=== PATIENT | male | born 1940 | race Caucasian/White ===

== ENCOUNTER 2016-05-05 16:15 | Emergency (ER) | payer MEDICARE ==
[~2016-05-05] VITALS: Ht 182.9 cm; Wt 119.1 kg
[~2016-05-05 16:15] MED LIST: ASPI81 PO; ATOR20TA42 PO; DOXA1 PO; FURO1TAB93 PO; GLIP5 PO; GLUCTAB PO; LISI-360 PO
[2016-05-05 16:18] VITALS: BP 128/81; PULSE 75; RESP 12; TEMP 98.1; O2SAT 98
[2016-05-05] MEDS ORDERED: WALKER/ADULT/FO1 MIS (17:10)
[2016-05-05] MEDS ORDERED: BACL10TA PO (17:10)
[2016-05-05] MEDS ORDERED: LIDO5DIS35 TOPICAL (17:10)
--- NOTE | 2016-05-05 17:12 | PD ---
HPI Chief Complaint: Back/ Neck Pain or Injury Time Seen by Provider: 16:58 Travel History International Travel<30 days: No Contact w/Intl Traveler<30days: No Traveled to known affect area: No History of Present Illness HPI 75 year old male here with lower back pain. He reports over the past year he has suffered from pain in the left and right lower back and he was told that he has sciatica. Sometimes the pain shoots down the right leg. He reports that today he was undergoing a medical procedure in which she had wine a hard bed for 20 minutes. Afterwards he had worse pain in his lower back from lying on the bed. He describes it as a sharp pain in the left and right sacroiliac regions of his back that is worse with movement. He has been using a family member's walker to get around today. He reports that he is prescribed tramadol and Vicodin for pain and he only uses it as needed. Today he needed to use some Vicodin and tramadol. Denies bowel or bladder incontinence, saddle anesthesia, abdominal pain, lower extremity weakness or radicular symptoms at this time. He has no other complaints. [facility] Past Medical History Narrative Medical Diabetes, hypertension, CHF Social History Alcohol Use: No Tobacco Use: No Allergies-Medications (Allergen,Severity, Reaction): Coded Allergies: No Known Allergies (Verified , 05/05/16) Reported Meds & Prescriptions Reported Meds & Active Scripts Active Walker/Adult/Folding (Device) 1 Mis Mis 1 Ea .ROUTE DIRECTED Baclofen 10 Mg Tab 10 Mg PO TID 7 Days Lidoderm Patch 12 HR (Lidocaine) 5% Patch 1 Patch TOPICAL DAILY PRN Remove patch after 12 hours Reported Glipizide 5 Mg Tab 2.5 Mg PO BID Lisinopril 10 mg (Lisinopril) 10 Mg Tab 10 Mg PO DAILY Doxazosin Mesylate 8 Mg Tab 8 Mg PO DAILY Lasix (Furosemide) 40 Mg Tab 40 Mg PO DAILY Lipitor (Atorvastatin Calcium) 20 Mg Tab 20 Mg PO HS Glucophage XR 24 HR (Metformin HCl) 500 Mg Tab 500 Mg PO BID Aspirin 81 Mg Tab 81 Mg PO DAILY Review of Systems Except as stated in HPI: all other systems reviewed are Neg Physical Exam Narrative GENERAL: Well-nourished male in no acute distress SKIN: Warm and dry. HEAD: Atraumatic. Normocephalic. EYES: Pupils equal and round. No scleral icterus. No injection or drainage. CARDIOVASCULAR: Regular rate and rhythm. No murmur appreciated. RESPIRATORY: No accessory muscle use. Clear to auscultation. Breath sounds equal bilaterally. GASTROINTESTINAL: Abdomen soft, non-tender, nondistended. Hepatic and splenic margins not palpable. MUSCULOSKELETAL: No obvious deformities. No reproducible tenderness to palpation of the lower back. Full muscle strength in lower extremities. NEUROLOGICAL: Awake and alert. No obvious cranial nerve deficits. Motor grossly within normal limits. Normal speech. PSYCHIATRIC: Appropriate mood and affect; insight and judgment normal. Data Data Last Documented VS Vital Signs Date Time Temp Pulse Resp B/P Pulse Ox O2 Delivery O2 Flow Rate FiO2 05/05/16 16:18 98.1 75 12 128/81 98 Orders Orphenadrine Inj (Norflex Inj) (05/05/16 17:15) Oxycodone-Acetamin 5-325 Mg (Percocet (05/05/16 17:15) MDM Medical Decision Making Medical Screen Exam Complete: Yes Emergency Medical Condition: Yes Medical Record Reviewed: Yes Differential Diagnosis Degenerative disc disease, compression fracture, herniated nucleus pulposis, muscle spasm, muscle strain Narrative Course 75-year-old male who is suffering intermittently from sciatic type symptoms for the past year presents with worse lower back pain today after having to lie in a hard bed for 20 minutes. Physical examination is benign. He has no reproducible bony tenderness to palpation. He has no lower extremity weakness. He is currently prescribed tramadol and Vicodin for pain and I counseled him on the importance of using those medications very sparingly. He has been counseled on the importance of avoiding NSAIDs by his primary care physician. The plan would be to prescribe the patient a short course of muscle relaxants as well as Lidoderm patches and have him follow-up with his primary care physician. He'll be given a dose of Norflex and Percocet here. He is also requesting a prescription for walker because he has been using his family member 's walker today and it seems to help. Diagnosis Primary Impression: Lower back pain Qualified Code: M54.5 - Acute bilateral low back pain without sciatica Additional Instructions: Medication as needed. Do not drive or drink alcohol when taking baclofen. Avoid strenuous activity, heavy lifting. Follow-up closely with primary care physician. Return for any emergent medical conditions. Med/Other Pt SpecificInfo: Prescription(s) given Scripts Walker/Adult/Folding 1 Mis Mis #1 EA .ROUTE DIRECTED Ref 0 Prov:Joni Perez MD 05/05/16 Baclofen 10 Mg Tab10 Mg PO TID 7 Days Ref 0 Prov:Joni Perez MD 05/05/16 Lidocaine Patch 12 HR (Lidoderm Patch 12 HR)5% Patch1 Patch TOPICAL DAILY PRN ( PAIN) #1 BOX Ref 0 Remove patch after 12 hours Prov:Joni Perez MD 05/05/16 Disposition: 01 DISCHARGE HOME Condition: Stable Manuel Barragan May 05, 2016 17:11
[2016-05-05] MEDS ORDERED: oxyCODONE/ACETAMINOPHEN 5 MG/325 MG TAB PO ONE (17:15)
[2016-05-05] MEDS ORDERED: ORPHENADRINE INJ 60 MG/2 ML AMP IM ONE (17:15)
== END 2016-05-05 18:07 | disposition home or self-care (01) ==
LOC: NETRI 16:15
DX: M54.5 Low back pain (principal); I50.9 Heart failure, unspecified; I10 Essential (primary) hypertension; E11.9 Type 2 diabetes mellitus without complications; Z79.4 Long term (current) use of insulin
CPT/HCPCS: 96372; 99282; J2360